=== PATIENT | male | born 1975 | race Two or more races ===

== ENCOUNTER 2018-11-30 18:53 | Emergency (ER) | payer OTHER ==
[2018-11-30] MEDS ORDERED: Ondansetron 4 MG Tab.DIS PO ONE (19:19)
[2018-11-30] MEDS ORDERED: Acetaminophen 325 MG Tab PO ONE (19:19)
--- NOTE | 2018-11-30 19:23 | EDM.PDOC ---
ED HPI GENERAL MEDICAL PROBLEM - General Chief Complaint: Head Injury Stated Complaint: HEAD NECK PAIN FROM FALL Time Seen by Provider: 11/30/18 19:04 Source of Information: Reports: Patient History Limitations: Reports: No Limitations - History of Present Illness INITIAL COMMENTS - FREE TEXT/NARRATIVE: 43 y/o M s/p head injury. Fell yesterday from truck, muddy boots slipped, he was standing about 4 feet above the ground and fell back striking his head on the concrete floor. No LOC. [place] dazed for about an hour. States he never really had a headache yesterday. Denies additional injury. Today feels a little "off", had trouble remembering which day it was which is unusual for him, and vomited once so came in for evaluation. No weakness, no confusion, no dizziness. Headache is minimal. Has neck soreness in sides of neck but no "pain ". Denies additional injury. No back pain/cp/SOB/abd pain or extremity pain. Mild diarrhea this morning, resolved. No abdominal pain. NO fever. Bilateral Neck Pain Score (Numeric/FACES): 5 - Related Data Allergies Allergy/AdvReac Type Severity Reaction Status Date / Time cat dander Allergy Rash Verified 11/30/18 19:06 Home Meds: Home Meds Acetaminophen [Tylenol] 325 mg PO Q6H PRN 11/30/18 [History] Cetirizine HCl [Zyrtec] 10 mg PO DAILY PRN 11/30/18 [History] Ibuprofen 200 mg PO Q6H PRN 11/30/18 [History] ED ROS GENERAL - Review of Systems Review Of Systems: See Below Constitutional: Denies: Fever HEENT: Reports: No Symptoms Respiratory: Denies: Shortness of Breath Cardiovascular: Denies: Chest Pain Endocrine: Reports: No Symptoms GI/Abdominal: Reports: Vomiting. Denies: Abdominal Pain Musculoskeletal: Reports: Neck Pain Skin: Reports: No Symptoms Neurological: Reports: Headache Psychiatric: Reports: No Symptoms Hematologic/Lymphatic: Reports: No Symptoms Immunologic: Reports: No Symptoms ED EXAM, HEAD INJURY - Physical Exam Exam: See Below Exam Limited By: No Limitations General Appearance: Alert, WD/WN, No Apparent Distress Head: Normocephalic, Other (abrasion to posterior scalp mid parietal, no soft tissue swelling or crepitus) Nexus Criteria: No: Posterior, Midline Cervical Tenderness, Evidence of Intoxication, Altered Level of Consciousness, Focal Neurological Deficit, Painful Distraction Injuries Eyes: Bilateral Eye: EOMI, Normal Inspection, PERRL Ears: Normal External Exam, Normal Canal, Hearing Grossly Normal, Normal TMs Nose: Normal Inspection, No Blood Throat/Mouth: Normal Inspection, Normal Oropharynx, Normal Voice, No Airway Compromise Neck: Full Range of Motion, Normal Alignment, Normal Inspection, Other (mild paraspinal TTP bilat) Respiratory: No Respiratory Distress, Lungs Clear, Normal Breath Sounds Cardiovascular: Normal Peripheral Pulses, Regular Rate, Rhythm GI/Abdominal Exam: Soft, Non-Tender, No Distention Back Exam: Normal Inspection. No: Vertebral Tenderness Extremities: Normal Inspection Neurologic: fence rider II-XII nml As Tested, No Motor/Sensory Deficits, Alert, Normal Mood/Affect, Oriented x 3 Skin: Normal Color, Warm/Dry Course - Vital Signs Last Recorded V/S: Last Vital Signs Temp 36.1 C 11/30/18 18:59 Pulse 92 11/30/18 18:59 Resp 18 11/30/18 18:59 BP 154/89 H 11/30/18 18:59 Pulse Ox 96 11/30/18 18:59 - Orders/Labs/Meds Meds: Medications Discontinued Medications Generic Name Dose Route Start Last Admin Trade Name Duran PRN Reason Stop Dose Admin Acetaminophen 650 mg 11/30/18 19:19 11/30/18 19:31 Tylenol PO 11/30/18 19:20 650 mg NOW ONE Administration Ondansetron HCl 8 mg 11/30/18 19:19 11/30/18 19:31 Zofran Odt PO 11/30/18 19:20 8 mg ONETIME ONE Administration - Re-Assessments/Exams Free Text/Narrative Re-Assessment/Exam: 11/30/18 19:57 CT head neg. Discussed concussion management and precautions at length. Advised PCP f/u in 1 week. Discussed ED return precautions. Departure - Departure Time of Disposition: 19:58 Disposition: Home, Self-Care 01 Clinical Impression: Concussion injury of brain - Discharge Information Forms: ED Department Discharge, ED Return to Work/School Form Additional Instructions: 1. Your head CT was normal. You do have a concussion. 2. Avoid work/intense activity for at least a few days. Avoid activities that could lead to a new concussion until your symptoms have completely resolved. 3. OK to take ibuprofen/acetaminophen per over the counter bottle instructions. 4. Follow up with your regular doctor in about a week. 5. REturn to the ED as needed for any new concerning symptoms, such as severe pain, confusion, or other concerns.
--- NOTE | 2018-11-30 19:44 | CT ---
Head CT Technique: Multiple axial sections through the brain were obtained. Intravenous contrast was not utilized. Comparison: No previous intracranial imaging is available. Findings: Ventricles along with basal cisterns and sulci over the convexities are within normal limits for the patient's age. No abnormal parenchymal densities are seen. No evidence of intracranial hemorrhage. No midline shift or mass effect is seen. Bone window settings were reviewed which shows no acute calvarial abnormality. Visualized mastoid sinuses and paranasal sinuses show nothing acute. Impression: 1. Nothing acute is appreciated on noncontrast head CT exam. Diagnostic code #1
== END 2018-11-30 20:05 | disposition home or self-care (01) ==
LOC: JD.ED 18:53
DX: S06.0X0A Concussion without loss of consciousness, initial encounter (principal); Z88.8 Allergy status to other drugs, medicaments and biological substances; W17.89XA Other fall from one level to another, initial encounter; W22.8XXA Striking against or struck by other objects, initial encounter
CPT/HCPCS: 70450; 99283; A9270